=== PATIENT | male | born 1965 | race Caucasian/White ===

== ENCOUNTER → 2023-10-26 06:27 | Day surgery (SDC) | payer BC, SELFPAY | LOC: GI 06:27 | PROVIDERS: ATTENDING PHYSICIAN Surgery | DX: Z12.11 Encounter for screening for malignant neoplasm of colon (principal); K63.5 Polyp of colon; Z80.0 Family history of malignant neoplasm of digestive organs; Z86.010 Personal history of colon polyps | CPT/HCPCS: 45380; 88305 ==

== ENCOUNTER → 2025-03-08 08:46 | Outpatient (REF) | payer BC, SELFPAY | LOC: WDC 08:46 | PROVIDERS: ATTENDING PHYSICIAN Family Medicine | DX: N64.53 Retraction of nipple (principal) | CPT/HCPCS: 76642; 77062; 77066 ==

== ENCOUNTER → 2025-03-17 08:48 | Outpatient (REF) | payer BC, SELFPAY ==
--- NOTE | 2025-03-20 09:12 | OID.BR.INTR ---
OID Breast Navigator - Initial
- -
Did not meet patient at time of biopsy. Will follow up per protocol.
== END ==
LOC: WDC 08:48
PROVIDERS: ATTENDING PHYSICIAN Family Medicine
DX: N63.10 Unspecified lump in the right breast, unspecified quadrant (principal); N63.12 Unspecified lump in the right breast, upper inner quadrant
CPT/HCPCS: 19083; 88305; 88341; 88342; 88360; A4648

== ENCOUNTER → 2025-04-20 06:55 | Outpatient (REF) | payer BC, SELFPAY | LOC: WDC 06:55 | PROVIDERS: ATTENDING PHYSICIAN Surgery | DX: C50.021 Malignant neoplasm of nipple and areola, right male breast (principal) | CPT/HCPCS: 38792; 76942; A9541 ==

== ENCOUNTER 2025-04-21 12:53 | Inpatient (IN) | payer BC, SELFPAY ==
[2025-04-12 08:50] LABS: Hematocrit 45.6 % (39.0-52.0); Hemoglobin 15.5 g/dL (13.0-18.0); Mean Corp Hgb Conc. 34.0 g/dL (33.0-37.0); Mean Corpuscular Volume 93.1 fL (80.0-94.0); Platelet Count 253 10^3/uL (130-400); Red Cell Dist. Width 12.5 % (11.5-14.5)
[2025-04-12 09:47] LABS: ALT (SGPT) 24 U/L (0-50); AST (SGOT) 22 U/L (17-59); Albumin 4.1 g/dl (3.5-5.0); Alkaline Phosphatase 48 U/L (38-126); Blood Urea Nitrogen 18 mg/dl (9-20); Calcium 9.2 mg/dl (8.4-10.2); Carbon Dioxide 30 mmol/L (22-30); Chloride 104 mmol/L (98-107); Glucose 92 mg/dl (70-99); Potassium 5.2 mmol/L (3.5-5.1); Sodium 140 mmol/L (135-145); Total Protein 6.6 g/dl (6.3-8.2); eGFR > 60.00
[2025-04-12 10:23] LABS: Prealbumin (Transthyretin) 27.3 mg/dl (17.6-36.0); Vitamin D, 25-OH*** 29.9 ng/mL (30-80)
[2025-04-12 13:56] VITALS: BMI 24.4
[2025-04-21] VITALS (12 sets, daily range): BP systolic 20–128; BP diastolic 65–79; BMI 24.4
[2025-04-21] MEDS: NORMOSOL-R/PLASMALYTE-A 1000 IV (13:38)
[2025-04-21] MEDS: TYLENOL 1000 MG PO (13:39)
[2025-04-21] MEDS: LOVENOX 40 MG SC (13:59)
[2025-04-21] MEDS: D5/0.45%NSS with KCL 20 MEQ 1000 IV (18:04)
--- NOTE | 2025-04-21 18:12 | PTCARENOTE ---
Pt arrived to [facility] from PACU in a bed. Right breast dressing with dermabond, telfa, 4x4, tegaderm and surgical bra c/d/i. Right breast KELL with sanguineous output. Pt DTV. Admission questions answered. and children at bedside. Bed locked and
in lowest position. Care ongoing.
[2025-04-21] MEDS: COLACE 100 MG PO (20:30)
[2025-04-22 03:00] VITALS: BP 100/72
[2025-04-22 07:00] VITALS: BP 115/79
[2025-04-22] MEDS: D5/0.45%NSS with KCL 20 MEQ IV (07:28)
[2025-04-22] MEDS: PROTONIX 40 MG PO (08:33)
[2025-04-22] MEDS: COLACE 100 MG PO (08:33)
--- NOTE | 2025-04-22 09:09 | W.IMMPOSTOP ---
Surgical Immed Post Op Note
-
Primary Surgeon: Francoise
Assisting Surgeon: None
Pre-op Diagnosis: Right breast ca
Post-op Diagnosis: Same
Procedure Performed: Right mastectomy and sentinel node mapping and biopsy
Anesthesia Type: TIVA
Specimen / Cultures: Right breast and sentinel nodes
Estimated Blood Loss: 20cc
Complications: None
Operative Findings: None
--- NOTE | 2025-04-22 09:10 | OR.RPT ---
Operative Report
Operative Report
Date of procedure: 04/21/2025
Surgeon: Francoise
Preoperative diagnosis: Right breast carcinoma
Postoperative diagnosis: Same
Procedure: Right mastectomy and sentinel lymph node mapping and biopsy
The patient is a 59-year-old male who noticed a change in his right nipple and underwent imaging revealing a mass leading to biopsy showing early stage favorable right breast carcinoma. He presents for mastectomy and sentinel lymph node mapping and
biopsy. On the day prior to the procedure he presented to the [facility] where technetium radiotracer was injected into the breast parenchyma. On the day of the surgery he presented to the same-day surgical services unit. He was prepped
and verified site and procedure. DVT and antibiotic prophylaxis were provided.
He was taken to the operating room and in the supine position LMA anesthesia was induced. Right breast was prepped and draped in usual sterile fashion after doing a wet shave of his skin. All team members were present and performed an appropriate
timeout procedure.
A standard Harris incision was made sharply with a blade and skin flaps were elevated using the PlasmaBlade. Any larger vessels were controlled with 3-0 silk tie. The breast was taken off the chest wall and a superior L medial to lateral
direction. Time out of body was noted and the specimen was oriented for the pathologist and sent for permanent analysis. This allowed entry into the axilla and the clavipectoral fascia was incised with the cautery. Neoprobe was used to identify 3
sentinel node packets which were excised. Feeding vessels were controlled with 3-0 silk. After the removal of these nodes there was a greater than fourfold reduction tobacco in count.
Hemostasis was carefully maintained. A flat [place] drain brought out through the inferior skin flap was secured using 2-0 nylon. The wound was closed using simple interrupted 3-0 plain and subcutaneous tissue and a running subcuticular 4
Monocryl on skin. Surgical glue and a sterile compressive dressing were applied. All sponge needle and instrument counts were correct and the patient was transferred to the recovery room in stable condition
([id number])
[place] Node Bx Breast Cancer
[place] Node Bx Breast Cancer
Operation performed with curative intent: Yes
Tracer(s) to ID [place] Nodes in Non-Neoadjuvant setting: Radioactive Tracer
Tracer(s) to ID [place] Nodes in the Neoadjuvant Setting: N/A
All nodes at end of dye-filled Lymphatic Channel removed: N/A
All Significantly Radioactive Nodes were removed: Yes
All Palpably Suspicious Nodes were Removed: Yes
Bx Proven Pos Nodes Marked Prior to Chemo ID'd & Removed: N/A
--- NOTE | 2025-04-22 09:15 | W.DS.TRANS ---
DC Summary - Motor Vehicle Assembler
-
Discharge Instructions:
Sleep Apnea Risk Low
Instructions:
Stand-Alone Forms:
Changes to Home Medications: No
Discharge Medications:
DC Medications w/original date entered in [employer]
No Meds [No Current Medications] 04/14/25
Home Medication Changes
Pending Results: Yes (breast and sentinel node pathology)
--- NOTE | 2025-04-22 09:18 | W.PN.UPDATE ---
Update Note
Progress Note Update
the patient is a 59 Y/O male POD #1 S/P right mastectomy and sentinel lymph node mapping and biopsy. He has no complaints and is tolerating PO pain meds and intake
Minimal drainage from drain. Plan to D/C to home and follow-up in 7-10 days. [facility] for drain care at home.
--- NOTE | 2025-04-22 11:10 | CM ---
Met with patient at bedside
Pharmacy verified: [facility] @ [address] [facility]
Patient lives w/ ; independent w/ ambulation, stairs, and ADLs; drives; works multimedia production assistant; No DME
No SNF or Home Health utilization history
will provide transport home
Agreeable to home health/VN; going home with drain; agency options identified; preference is [facility]; referral sent via [facility]
Plan: Discharge to home with Home Health/VN
== END 2025-04-22 10:50 | disposition home health service (06) | DRG 581 ==
LOC: 2 SOUTH 12:53
PROVIDERS: ADMITTING PHYSICIAN Surgery; FAMILY PHYSICIAN Family Medicine
PROC: 07B50ZX Excision of Right Axillary Lymphatic, Open Approach, Diagnostic (ICD-10-PCS; 2025-04-22)
PROC: 0HTT0ZZ Resection of Right Breast, Open Approach (ICD-10-PCS; 2025-04-22)
DX: C50.021 Malignant neoplasm of nipple and areola, right male breast (principal); Z17.0 Estrogen receptor positive status [ER+]
CPT/HCPCS: 36415; 80053; 82306; 84134; 85027; 88307; 88342; 93005; L8000